=== PATIENT | female | born 1995 | race Caucasian/White ===

== ENCOUNTER 2022-04-29 10:18 | Emergency (ER) | payer OTHER, SELFPAY ==
[2022-04-29 10:26] VITALS: BP 125/86; PULSE 100; RESP 16; TEMP 36.8; O2SAT 98; BMI 32.4
--- NOTE | 2022-04-29 11:16 | XRR_ITS ---
PROCEDURE INFORMATION: Exam: XR Thoracic Spine Exam date and time: 04/29/2022 11:29 AM Age: 26 years old Clinical indication: Injury or trauma; Fall; Blunt trauma (contusions or hematomas); Injury date: 04/29/22; Injury details: Fell this am down concrete steps, hitting lower left back, resulting in mid/low back pain; Additional info: Mid back pain after fall TECHNIQUE: Imaging protocol: Radiologic exam of the thoracic spine. Views: 3 views. COMPARISON: No relevant prior studies available. FINDINGS: Bones/joints: Normal. No acute fracture. Normal alignment. Soft tissues: Unremarkable. XR/XR thoracic spine 3V* [id number] IMPRESSION: No acute findings.
--- NOTE | 2022-04-29 11:16 | XRR_ITS ---
PROCEDURE INFORMATION: Exam: XR Lumbosacral Spine Exam date and time: 04/29/2022 11:29 AM Age: 26 years old Clinical indication: Injury or trauma; Fall; Blunt trauma (contusions or hematomas); Injury date: 04/29/22; Patient HX: Fell this am down concrete steps, hitting lower left back, resulting in mid/low back pain; Additional info: Fall injury TECHNIQUE: Imaging protocol: Radiologic exam of the lumbosacral spine. Views: 2 or 3 views. COMPARISON: No relevant prior studies available. FINDINGS: Bones/joints: Normal. No acute fracture. Normal alignment. Soft tissues: Unremarkable. XR/XR lumbar spine 2-3V* [id number] IMPRESSION: No acute findings.
--- NOTE | 2022-04-29 12:06 | W.ED.FALL ---
HPI - Fall General: Chief Complaint: Fall Stated Complaint: fell and hurt back Time Seen by Provider: 04/29/22 11:19 History of Present Illness: Patient is a 26-year-old female comes to the ED with back pain after fall injury. Fall injury occurred a couple hours ago. She slipped on the ice while walking down some steps and fell landing on her left side of back. She is now having left-sided back pain. Denies any head trauma or loss of consciousness. Patient took some ibuprofen before coming in the ED. She says her pain is mild and does not need any pain meds here in the ED. Associated symptoms-after fall: Denies abdominal pain, chest pain, headache(s), hematuria or neck pain Review of Systems Const: Denies: fever(s), chills or fatigue Eyes: Denies: change in vision or eye discomfort ENMT: Denies: throat pain, odynophagia, nasal discharge or nasal congestion Card: Denies: chest pain, palpitations, edema, swelling of feet/ankles, dyspnea on exertion or orthopnea Resp: Denies: dyspnea, productive cough or non-productive cough GI: Denies: abdominal pain, nausea, vomiting, diarrhea, constipation or hematochezia : Denies: flank pain, dysuria or hematuria Musc: Reports: back pain; Denies: neck pain or extremity swelling Skin/Breast: Denies: rash or new lesions Neuro: Denies: headache(s), numbness in extremities or weakness in extremities [facility] PFSH: Medical History (Updated 04/29/22 @ 16:38 by JOCELINE Jurado) No pertinent family history Surgical History (Updated 04/29/22 @ 16:38 by JOCELINE Jurado) No pertinent past surgical history Physical Exam Const: COMMON NORMALS: no acute distress, patient oriented x3, healthy appearing and alert GENERAL APPEARANCE: cooperative and comfortable HENMT: COMMON NORMALS: normocephalic HEAD & SCALP: normocephalic MOUTH: Normal oral and palatal mucosa present THROAT: posterior oropharynx normal and uvula midline Neck/C-Spine: COMMON NORMALS: supple GENERAL: Yes normal visual inspection Resp: COMMON NORMALS: normal respiratory effort, No retractions, No use of accessory muscles and clear to auscultation bilaterally AUSCULTATION: clear to auscultation bilaterally Cardio: COMMON NORMALS: regular rate, regular rhythm, S1 normal heart sound present, S2 normal heart sound present, No gallops present (Cardio), No clicks present (Cardio), No murmurs present (Cardio) and Peripheral pulses 2+ throughout RATE: regular rate RHYTHM: regular rhythm HEART SOUNDS: S1 normal heart sound present and S2 normal heart sound present PERIPHERAL PULSES: Peripheral pulses 2+ throughout GI: COMMON NORMALS: Normal to inspection, nondistended, normoactive bowel sounds present, Soft to palpation, non-tender and no masses PALPATION: Yes Soft to palpation : COMMON NORMALS: Yes no CVA tenderness BLADDER/KIDNEY EXAM: Yes no CVA tenderness Back/Pelvis: COMMON NORMALS: no CVA tenderness THORACIC SPINE/UPPER BACK: Yes paraspinal muscle tenderness Thoracic paraspinal muscle tenderness: left LUMBAR SPINE/LOWER BACK: Yes paraspinal muscle tenderness Lumbar paraspinal muscle tenderness: left Extremity: COMMON NORMALS: normal to inspection Neuro: COMMON NORMALS: patient oriented x3 SENSORIUM/ORIENTATION: Yes alert GAIT: Yes Normal gait present Skin: GENERAL SKIN EXAM: dry skin Course Vital Signs: Vital signs: Vital Signs Temperature 98.2 F 04/29/22 10:26 Pulse Rate 100 04/29/22 10:26 Respiratory Rate 16 04/29/22 10:26 Blood Pressure 125/86 04/29/22 10:26 Pulse Oximetry 98 04/29/22 10:26 Oxygen Delivery Me thod 04/29/22 10:26 MDM - Fall Medical Decision Making Patient is a 26-year-old female comes to the ED with back pain after fall injury. Fall injury occurred a couple hours ago. She slipped on the ice while walking down some steps and fell landing on her left side of back. She is now having left-sided back pain. Denies any head trauma or loss of consciousness. Patient took some ibuprofen before coming in the ED. She says her pain is mild and does not need any pain meds here in the ED. vitals are stable. Patient is nontoxic in no acute distress or pain. She has some paraspinal muscle tenderness on the left side of thoracic and lumbar spine. Rest of exam is benign. X-ray of thoracic spine and lumbar spine showed no acute fractures or findings. Patient was diagnosed with back pain due to injury and was discharged home with a muscle relaxer. Told to follow-up with her PCP in the next week for reevaluation. Return to ED precautions given. Patient understood and agreed with plan. Lab Data Radiology Impressions Lumbar Spine X-Ray 04/29/22 11:16 IMPRESSION: No acute findings. Thoracic Spine X-Ray 04/29/22 11:16 IMPRESSION: No acute findings. Discharge Plan Discharge Patient Disposition: Home Clinical Impression: Back pain due to injury Condition: Stable Prescriptions: New methocarbamol 750 mg tablet 750 mg PO Q8H PRN (Reason: Muscle spasms and pain) Qty: 15 0RF Discharge Orders: Discharge ED (Routine); Ordered 04/29/22 Ordered By: Elton Burns Discharge Diet: Regular Discharge Activity: Increase activity as tolerated Patient Instructions: Back Pain (ED) Activity Restrictions/Additional Instructions: Follow-up with medical provider as directed in the next 5 to 7 days for reevaluation. Take medications as prescribed. Return to the ER or your medical provider if condition worsens. Please read and understand discharge instructions. Thank you for choosing [facility] for your healthcare needs today. Please realize this is an emergency room and that we are providing you with a medical screening exam and this may not be complete and all inclusive of all the testing and or work up that you may need to determine your ailment or severity of your illness. It is very important that you follow up as instructed or that you return to the Emergency Department should you have concerns or if your condition changes or worsens in any way. Coding Level of Care Code ED Manager Market Development for [employer] Exam Comprehensive
== END 2022-04-29 12:40 | disposition home or self-care (01) ==
PROVIDERS: Emergency Provider Physician Assistant
DX: M54.9 Dorsalgia, unspecified (principal); W00.1XXA Fall from stairs and steps due to ice and snow, initial encounter
CPT/HCPCS: 72072; 72100; 99283

== ENCOUNTER 2023-10-16 20:08 | Inpatient (IN) | payer BC, MEDICAID, SELFPAY ==
[2023-10-16] VITALS (71 sets, daily range): BP systolic 84–166; BP diastolic 46–93; PULSE 66–107; RESP 15–17; TEMP 35.8–36.1; O2SAT 97–100; BMI 34.4
[2023-10-16 11:41] LABS: Basophils % 0.3 %; Eosinophils # 0.2 10^3/uL (0.0-0.8); Eosinophils % 1.3 %; Hematocrit 35.5 % (36-47); Lymphocytes % 16.8 %; Mean Corpuscular HGB Conc 34.1 g/dL (30-55); Mean Corpuscular Hemoglobin 31.5 pg (27-33); Mean Corpuscular Volume 92.4 fl (85-98); Mean Platelet Volume 10.4 fL (7.4-10.4); Monocytes % 8.3 %; Neutrophils # 8.83 10^3/uL (1.8-7.7); Nucleated Red Blood Cells % 0 %; Platelet Count 218 10^3/cmm (157-399); Red Blood Count 3.84 10^6/uL (3.85-5.65); Red Cell Distribution Width 12.8 % (12.1-15.1); White Blood Count 12.12 10^3/uL (3.29-11.43)
[2023-10-16] MEDS: lactated ringers 1,000 ML 999 ML IV (12:45)
[2023-10-16] MEDS: ROPivacaine syringe 100 MG/50 ML SYRINGE 10 MG EPIDURAL ×2 (14:18→18:48)
--- NOTE | 2023-10-16 14:20 | P.ANESASSM_ITS ---
Pre-Anesthetic Assessment Height/Weight: Height 1.7 m Weight 99.79 kg Temp Pulse Resp BP Pulse Ox O2 Del Method 97.0 F L 98 17 135/77 97 Room Air 10/16/23 11:25 10/16/23 14:15 10/16/23 07:55 10/16/23 14:15 10/16/23 14:13 10/16/23 13:30 Preop Diagnosis: IUP Labor Epidural Familial anesthetic complications: None Was Beta Moustapha taken within 24 hours: N/A Was Clonidine taken within 24 hours: N/A Last intake: 10/16/23 1200 MEAL CLEARS- CURRENT Social No alcohol and No tobacco Exam alert, oriented x 3 and clear to auscultation bilaterally Airway Submandibular: within normal limits Cervical ROM: within normal limits Mallampati: Class II Dentition: full History/ROS No significant history except as noted CV/HEM None reported None reported Hepatic None reported GI Gastroesophageal Reflux Disease Metabolic None reported Musc/skel Lower Back Pain Patient reported fall 04/22 imagining only indicated soft tissue trauma. Patient reports persistent back pain since incident. describes pain as a dull ache with sharp pain in legs at night when lying flat. Educated on risk of epidural placement and chronic back pain, imaging reviewed agreed to proceed. Epidural inserted with ease on first attempt. Neuropsych None reported Anesthetic Plan ASA status: 2 Anesthesia: Regional (specify below) Other: Labor Epidural Medications/Allergies Home Medications Medication Instructions Recorded Confirmed Last Taken Type methocarbamol 750 mg tablet 750 mg PO Q8H PRN Muscle spasms 04/29/22 Unknown Rx and pain #15 tabs Current Medications Generic Name Dose Route Start Last Admin Trade Name Freq PRN Reason Stop Dose Admin Lactated Ringer's 1,000 mls @ 999 mls/hr 10/16/23 10:25 10/16/23 13:19 Lactated Ringers IV 999 mls/hr .Q1H1M PRN Infusion See label comments PFSH Anesthesia Medical History (Updated 05/07/22 @ 00:01 by AWA Baptiste) No pertinent family history Surgical History (Updated 04/29/22 @ 16:38 by JOCELINE Jurado) No pertinent past surgical history Female Reproductive History : 2 Data Anesthesia 10/16/23 11:06 Short CBC 10/16/23 Range/Units 11:06 WBC 12.12 H (3.29-11.43) 10^3/uL Hgb 12.10 (11.27-16.99) g/dL Hct 35.5 L (36-47) % MCV 92.4 (85-98) fl Plt Count 218 (157-399) 10^3/cmm Neut % (Auto) 73.0 % Neut # (Auto) 8.83 H (1.8-7.7) 10^3/uL Blood Bank 10/16/23 11:06 Blood Type A Positive Rho(D) Type Rh positive Antibody Screen Negative Cardiac Studies: 2 No Data to Display Anesthesia Procedures Epidural Time Out Performed: Yes Consents Signed: Procedure Consent Consent: from patient, risks and benefits reviewed and patient agrees to proceed Lumbar Level: L3-L4 Epidural position: sitting Epidural procedure: sterile prep of area, 1% lidocaine to numb the area, negative for paresthesia passed, test dose given, 1.5% xylocaine 1:200k epi, placed PCEA, no systemic response, sterile dressing applied, L.U.D. no apparent complications and 0.2% Ropiavacaine @ mls/hr (10) Additional Comments: GUNNER @ 6 cm , first attempt, - heme -csf. catheter threaded to 12cm with ease. Adequate analgesia achieved.
[2023-10-16] MEDS: ondansetron 2 mg/ML SDV 2 mL 4 MG IVP (14:30)
[2023-10-16] MEDS: oxytocin 30 UNIT/500 ML BAG IV (16:14)
[2023-10-16] MEDS: lidocaine 2% INJ 20 mL INJECTION (19:50)
--- NOTE | 2023-10-16 20:07 | PM.OPHPUD ---
Labor & Delivery H&P Update Date of Procedure: October 16, 2023 Date H&P Performed: 10/15/23 Changes to previous documentation: Cervix is dilated to 3 with consistent painful contractions. Admission Diagnosis: 28-year-old 2 para 1-0-0-1 at 38 weeks estimated gestational age in active labor Preop diagnosis: IUP Planned procedure: Spontaneous vaginal delivery Other information: The patient presented to the hospital in active labor. She was noted to be 3-4 cm dilated 80% effaced with contractions happening every 5 minutes. To the previous my office she was 60% effaced. As result she was admitted for labor. Her blood type is a positive. Her antibody screen was negative. Her RPR was negative. Group B strep drip was negative. She passed her 3-hour glucose screen. The remainder of her infectious disease profile was within normal limits. Her rubella is nonimmune. Related Problem List Diagnoses (1) 38 weeks gestation of : A&P Assessment and plan (1) 38 weeks gestation of : I anticipate routine labor and delivery. Status: Acute
--- NOTE | 2023-10-16 20:11 | PM.DELIVERY ---
Delivery Note: Date of delivery: October 16, 2023 Pre-delivery diagnoses: 28-year-old 2 para 1-0-0-1 at 38 weeks estimated gestational age presenting in active labor Post-delivery diagnoses: Status post spontaneous vaginal delivery Procedure: Spontaneous vaginal delivery Delivering Physician: Virgilio Cordova Estimated blood loss (mL): 100 Pre-Delivery Course: The patient presented to the hospital in active labor. An epidural was placed. An amniotomy was performed. Labor was augmented to with Pitocin. She progressed to complete without difficulty. Delivery: DELIVERY: The patient progressed to complete without difficulty. She delivered a male with a weight of 7 pounds 11 ounces with Apgars of 7, 9. The baby was delivered from the MARYBETH position and placed on the mother's abdomen. The cord was then clamped and cut. There was no nuchal cord. There was no meconium. The placenta and 3 vessel cord were delivered intact shortly thereafter. The perineum and vaginal vault were carefully examined. A second-degree posterior midline laceration was noted. It was repaired with 3-0 Vicryl in a running stitch.. Both the mother and the baby were in stable condition. Post-Delivery Status: Good History History History 2 Term 1 0 Miscarriages/Ectopic 0 Living Children 1 A&P Assessment and plan (1) Spontaneous vaginal delivery: I anticipate routine care. Coding Level of Care Code Acute Code for Chg Fwd Diagnoses Spontaneous vaginal delivery O80
[2023-10-17] VITALS (8 sets, daily range): BP systolic 104–132; BP diastolic 61–83; PULSE 65–83; RESP 16–17; TEMP 36.4–36.7; O2SAT 97–98
--- NOTE | 2023-10-17 08:00 | ANE.PACU2 ---
Inpatient post-anesthesia follow up: Airway intact: Yes Vital signs: Temperature 97.8 F Pulse Rate 82 Respiratory Rate 16 Blood Pressure 132/83 Pulse Oximetry 97 Oxygen Delivery Me thod Room Air Oxygen Flow Rate Fraction of Inspir ed Oxygen Hydration adequate: Yes Nausea and vomiting: No Pain level: 1 Mental status: Baseline Epidural Start/End: Epidural Start Date: 10/16/23 Epidural Start Time: 13:52 Epidural End Date: 10/16/23 Epidural End Time: 22:00
[2023-10-17 08:37] LABS: Hematocrit 32.5 % (36-47); Mean Corpuscular HGB Conc 33.5 g/dL (30-55); Mean Corpuscular Hemoglobin 31.1 pg (27-33); Mean Corpuscular Volume 92.9 fl (85-98); Mean Platelet Volume 10.6 fL (7.4-10.4); Platelet Count 198 10^3/cmm (157-399); Red Cell Distribution Width 12.7 % (12.1-15.1); White Blood Count 12.67 10^3/uL (3.29-11.43)
[2023-10-17] MEDS: ibuprofen 800 mg tablet PO ×3 (09:39→21:08)
[2023-10-17] MEDS: PRENATAL VIT NO.130/IRON/FOLIC 1 EACH TABLET PO (09:39)
[2023-10-17] MEDS: docusate sodium 100 mg Capsule PO (09:39)
--- NOTE | 2023-10-17 10:46 | P.DS_ITS ---
Discharge Providers COMMUNITY RELATIONS ADVISOR Date of Admission: 10/16/23 20:08 Date of Discharge: 10/17/23 Attending Provider at Admission: Virgilio Cordova MD Attending Provider at Discharge: Virgilio Cordova MD Diagnoses at Discharge Discharge Diagnosis (1) Spontaneous vaginal delivery: Status: Acute Reason for Visit Reason for Visit: CTX Hospital Course Hospital Course The patient presented in active labor. Labor was augmented with an amniotomy and pitocin. she progressed to complete and had an unremarkable delivery of a healthy male infant. Her course was also unremarkable. Her bleeding and pain were both wnl. She had some struggles with but she has been working with the validation consultant. Physical Exam Narrative: Fundus below the umbilicus. Const: COMMON NORMALS: patient oriented x3 and alert HENMT: COMMON NORMALS: moist oral mucous membranes HEAD & SCALP: normal to inspection Chest: COMMONS NORMALS: normal inspection of the chest Resp: COMMON NORMALS: clear to auscultation bilaterally AUSCULTATION: clear to auscultation bilaterally Cardio: COMMON NORMALS: regular rate and regular rhythm RATE: regular rate RHYTHM: regular rhythm GI: INSPECTION: Yes normal to inspection Extremity: COMMON NORMALS: normal to inspection GENERAL: Yes edema (Trace) Neuro: COMMON NORMALS: patient oriented x3, moves all extremities and no sensory deficits noted SENSORIUM/ORIENTATION: Yes alert Psych: COMMON NORMALS: mental status grossly normal Skin: COMMON NORMALS: no rashes or lesions noted GENERAL SKIN EXAM: no rashes or lesions noted Urinary Catheter Management: Pulido: Cath Placed During This Visit: yes, but has since been removed by the nurse Reason for Continuing Indwelling Catheter: Decision to DC Catheter Urinary Catheter Date of Insertion: 10/16/23 Urinary Catheter Time of Insertion: 15:18 Date Urinary Catheter Removed: 10/16/23 Time Urinary Catheter Discontinued: 19:38 History History History 2 Term 1 0 Miscarriages/Ectopic 0 Living Children 1 Discharge Data Studies Completed and Pending Pending at discharge Category Date Time Status Retype for Patiets ABO/Rh Routine Lab 10/16/23 07:47 Received Laboratory Results WBC 12.67 10^3/uL (3.29-11.43) H 10/17/23 07:47 RBC 3.50 10^6/uL (3.85-5.65) L 10/17/23 07:47 Hgb 10.90 g/dL (11.27-16.99) L 10/17/23 07:47 Hct 32.5 % (36-47) L 10/17/23 07:47 MCV 92.9 fl (85-98) 10/17/23 07:47 MCH 31.1 pg (27-33) 10/17/23 07:47 MCHC 33.5 g/dL (30-55) 10/17/23 07:47 RDW 12.7 % (12.1-15.1) 10/17/23 07:47 Plt Count 198 10^3/cmm (157-399) 10/17/23 07:47 MPV 10.6 fL (7.4-10.4) H 10/17/23 07:47 Neut % (Auto) 73.0 % 10/16/23 11:06 Lymph % (Auto) 16.8 % 10/16/23 11:06 [place] % (Auto) 8.3 % 10/16/23 11:06 Eos % (Auto) 1.3 % 10/16/23 11:06 Baso % (Auto) 0.3 % 10/16/23 11:06 Neut # (Auto) 8.83 10^3/uL (1.8-7.7) H 10/16/23 11:06 Lymph # (Auto) 2.0 10^3/uL (0.8-4.8) 10/16/23 11:06 [place] # (Auto) 1.0 10^3/uL (0.2-0.9) H 10/16/23 11:06 Eos # (Auto) 0.2 10^3/uL (0.0-0.8) 10/16/23 11:06 Baso # (Auto) 0.0 10^3/uL (0.0-0.1) 10/16/23 11:06 Nucleated RBC % (auto) 0 % 10/16/23 11:06 Nucleated RBCs # 0.0 /100WBC 10/16/23 11:06 Blood Type A Positive 10/16/23 11:06 Rho(D) Type Rh positive 10/16/23 11:06 Antibody Screen Negative 10/16/23 11:06 Vitals Last Vital Signs Temp 97.6 F 10/17/23 05:15 Pulse 76 10/17/23 05:15 Resp 17 10/17/23 05:15 BP 119/80 10/17/23 05:15 Pulse Ox 98 10/17/23 03:15 O2 Del Method Room Air 10/17/23 03:15 Results Labs OB ([facility]): Blood Type A Positive 10/16/23 Antibody Screen Negative 10/16/23 Hct 32.5 % (36-47) L 10/17/23 Hgb 10.90 g/dL (11.27-16.99) L 10/17/23 Rho(D) Type Rh positive 10/16/23 Plt Count 198 10^3/cmm (157-399) 10/17/23 Discharge Plan Discharge Patient Disposition: Home Condition: Stable Prescriptions: New ibuprofen 800 mg Tablet 800 mg PO TID Qty: 45 0RF Vitamin 27 mg iron- 800 mcg Tablet 1 tab PO DAILY Qty: 90 0RF Discontinued methocarbamol 750 mg tablet 750 mg PO Q8H PRN (Reason: Muscle spasms and pain) Qty: 15 0RF Discharge Orders: Discharge Order (Routine); Ordered 10/17/23 Ordered By: Virgilio Cordova Referrals: Virgilio Cordova MD [Physician] - 6 Weeks Discharge Diet: Usual diet Discharge Activity: Limit activity as instructed Patient Instructions: Depression (DC), Opioid Safety (DC), Pr eeclampsia and Eclampsia After Delivery (GEN), Hemorrhage (DC), OB Discharge Report, OB Food/Drug Interaction Guide, OB Care at Home, Opioid Safety, OB Vaginal Deliveries, Abnormal Bleeding Discharge Attestations COMMUNITY RELATIONS ADVISOR Time Spent in Discharge Care*: less than 30 min Coding Level of Care Code Acute Code for Chg Fwd Diagnoses Spontaneous vaginal delivery O80
[2023-10-17] MEDS: measles,mumps,rubella pf Vial (w/diluent) 0.5 ML SUBCUT (21:08)
--- NOTE | 2023-10-20 16:08 | ANES.PREANE2 ---
Pre-Anesthetic Assessment Height/Weight: Height 1.7 m Weight 99.79 kg Temp Pulse Resp BP Pulse Ox O2 Del Method 97.8 F 82 16 132/83 97 Room Air 10/17/23 21:50 10/17/23 21:50 10/17/23 21:50 10/17/23 21:50 10/17/23 21:50 10/17/23 21:30 Preop Diagnosis: IUP Epidural Familial anesthetic complications: Prior epidural took seven attempts Was Beta Moustapha taken within 24 hours: N/A Was Clonidine taken within 24 hours: N/A Last intake: > 8 hrs Social No alcohol and No tobacco Exam alert, oriented x 3, clear to auscultation bilaterally and regular rate & rhythm Airway Mallampati: Class III Dentition: full Pulmonary Asthma Metabolic Morbid Obesity Anesthetic Plan ASA status: 3 Anesthesia: Regional (specify below) Risk of > 500 ml blood loss (7ml/kg in children): Yes, adequate IV access and fluids planned Medications/Allergies Home Medications Medication Instructions Recorded Confirmed Last Taken Type escitalopram oxalate 10 mg tablet 10 mg PO DAILY 10/17/23 10/17/23 Unknown History ibuprofen 800 mg tablet 800 mg PO TID #45 tabs 10/17/23 Unknown Rx vits no.130-ferrous fum 1 tab PO DAILY #90 tabs 10/17/23 Unknown Rx 27 mg iron-folic acid 800 mcg tablet ( Vitamin) Allergies Allergy/AdvReac Type Severity Reaction Status Date / Time No Known Allergies Allergy Verified 10/16/23 22:41 [facility] Anesthesia Medical History (Updated 10/18/23 @ 00:01 by AWA Baptiste) No pertinent family history Surgical History (Updated 04/29/22 @ 16:38 by JOCELINE Jurado) No pertinent past surgical history Female Reproductive History : 2 Data Anesthesia 10/17/23 07:47 Cardiac Studies: No Data to Display
--- NOTE | 2023-10-20 16:09 | ANES.PROC ---
Anesthesia Procedures Procedure/Date: 10/20/23 Epidural: Time Out Performed: Yes Consents Signed: Procedure Consent Consent: requested by attending/covering physician, from patient, from other, risks and benefits reviewed and patient agrees to proceed Lumbar Level: L3-L4 Epidural position: sitting Epidural procedure: sterile prep of area, 1% lidocaine to numb the area, 18 g needle, negative for paresthesia passed, neg for paresthesia, test dose given, 1.5% xylocaine 1:200k epi (5), 0.2% Ropivacaine bolus ml (5), placed PCEA, no systemic response, sterile dressing applied, L.U.D. no apparent complications and 0.2% Ropiavacaine @ mls/hr (10) Additional Comments: GUNNER at 6.5 cm, threaded to 13 cm. patient reported decrease in pain of contraction from 7 to 4 out of 10
== END 2023-10-17 21:52 | disposition home or self-care (01) | DRG 807 ==
LOC: OPOB 20:09 → OBGYN 20:09
PROVIDERS: Admitting Provider Family Medicine; Visit Provider Family Medicine
DX: O70.1 Second degree perineal laceration during delivery (principal); Z37.0 Single live birth; Z3A.38 38 weeks gestation of pregnancy; Z23 Encounter for immunization
CPT/HCPCS: 36415; 51702; 59025; 85025; 85027; 86850; 86900; 90707; 96372; 96374; J2405; J2590; J2795; J7120